=== PATIENT | male | born 1980 | race Caucasian/White ===

== ENCOUNTER 2018-09-03 02:27 | Emergency (ER) | payer BC, OTHER ==
[~2018-09-03] VITALS: Ht 175.3 cm; Wt 89.7 kg
[2018-09-03 02:35] VITALS: Ht 175.3 cm; Wt 89.7 kg
--- NOTE | 2018-09-03 02:45 | ERD ---
ER Documentation Chief Complaint Chief Complaint unable to sleep HPI The patient is a 38-year-old male, presenting to the ER because of inability to sleep for the last 2 months, complains of dyspnea/ chest pressure when he is unable to sleep, had similar symptoms previously. The chest pressure is worse with movement, he works as a hand touch up painter. He denies fever, chills, neck pain, chest pain with vomiting/radiation/exertion/diaphoresis, abdominal pain, vomiting, dysuria, diarrhea. He does not smoke nor drink, has a lot of stress in his life Past medical history: Anxiety Past surgical history: None ROS All systems reviewed and are negative except as per history of present illness. Medications Home Meds Active Scripts Zolpidem Tartrate* (Ambien*) 5 Mg Tablet, 5 MG PO HS PRN for INSOMNIA, #10 TAB Prov:BRITTNEY FARIAS MD 09/03/18 Reported Medications Ibuprofen* (Advil*) 200 Mg Capsule, 400 MG PO Q6H PRN for PAIN, CAP 09/03/18 Allergies Allergies: Coded Allergies: No Known Allergy (Unverified , 09/03/18) Physical Exam Vitals Vital Signs Date Temp Pulse Resp B/P (MAP) Pulse Ox O2 O2 Flow FiO2 Time Delivery Rate 09/03/18 72 15 122/81 98 Room Air 04:30 (95) 09/03/18 74 15 121/79 99 Room Air 03:30 (93) 09/03/18 97.8 93 18 173/103 98 02:35 (126) Physical Exam Const: No acute distress. Head: Atraumatic. Eyes: Normal Conjunctiva. ENT: Normal External Ears, Nose and Mouth. Neck: Full range of motion. No meningismus. Resp: Clear to auscultation bilaterally. Cardio: Regular rate and rhythm. Bilateral chest wall tenderness on palpation, no crepitus/erythema Abd: Soft, non distended, normal bowel sounds, non tender. Skin: No petechiae or rashes. Back: No midline or flank tenderness. Ext: No cyanosis, or edema. Neur: Awake and alert. No focal deficit Psych: Normal Mood and Affect. Result Diagram: 09/03/18 0252 09/03/18 0252 Results 24 hrs Laboratory Tests Test 09/03/18 02:52 White Blood Count 7.3 10^3/ul Red Blood Count 4.88 10^6/ul Hemoglobin 14.6 g/dl Hematocrit 41.7 % Mean Corpuscular Volume 85.5 fl Mean Corpuscular Hemoglobin 29.9 pg Mean Corpuscular Hemoglobin Concent 35.0 g/dl Red Cell Distribution Width 12.8 % Platelet Count 218 10^3/UL Mean Platelet Volume 9.7 fl Immature Granulocytes % 0.400 % Neutrophils % 61.5 % Lymphocytes % 30.6 % Monocytes % 6.7 % Eosinophils % 0.4 % Basophils % 0.4 % Nucleated Red Blood Cells % 0.0 /100WBC Immature Granulocytes # 0.030 10^3/ul Neutrophils # 4.5 10^3/ul Lymphocytes # 2.2 10^3/ul Monocytes # 0.5 10^3/ul Eosinophils # 0.0 10^3/ul Basophils # 0.0 10^3/ul Nucleated Red Blood Cells # 0.0 10^3/ul Sodium Level 142 mmol/L Potassium Level 4.0 mmol/L Chloride Level 108 mmol/L Carbon Dioxide Level 26 mmol/L Anion Gap 8 Blood Urea Nitrogen 14 mg/dl Creatinine 1.00 mg/dl Est Glomerular Filtrat Rate mL/min > 60 mL/min Glucose Level 115 mg/dl Calcium Level 9.1 mg/dl Troponin I < 0.012 ng/ml Current Medications Medications Dose Sig/[place] Start Time Status Last (Trade) Ordered Route PRN Stop Time Admin Dose Reason Admin Lorazepam 0.5 mg ONCE ONCE 09/03/18 DC 09/03/18 (Ativan) PO 03:30 03:18 09/03/18 03:31 Ketorolac 30 mg ONCE STAT 09/03/18 DC 09/03/18 Tromethamine IV 03:10 03:18 (Toradol) 09/03/18 03:11 Procedures/[place] [id number] Radiology Main Line: [phone] DIAGNOSTIC IMAGING REPORT Patient: ARLETH PALM : 1980 Age: 38 Sex: M MR #: [id number] DOS: 09/03/18 0249 Ordering MD: BRITTNEY FARIAS MD Location: E/R Room/Bed: PROCEDURE: Single view chest. CLINICAL INDICATION: Chest pain TECHNIQUE: Single view of the chest was obtained COMPARISON: None FINDINGS: There is no airspace consolidation or focal infiltrate. No pleural effusion or pneumothorax. Cardiac silhouette and mediastinal contours are unremarkable. Pulmonary vasculature appears normal. Regional bones are grossly unremarkable. IMPRESSION: No evidence of active cardiopulmonary disease. RPTAT: [facility] Physician [place] Date Time Electronically viewed and signed by Yvette Nugent Physician on 09/03/2018 04:46 xB/ CC: BRITTNEY FARIAS MD [id number] EKG: At 2:31 AM read by emergency physician Rate/Rhythm: Normal Sinus Rhythm 88 beats/min QRS, ST, T-waves: No ST elevation, no T inversion, RAD, RVH Impression: Abnormal EKG EKG: At 3:10 AM read by emergency physician Rate/Rhythm: Normal Sinus Rhythm 78 beats/min QRS, ST, T-waves: No ST elevation, no T inversion, RAD, RVH Impression: Abnormal EKG MEDICAL MAKING DECISION: The patient is a 38-year-old male, presenting to the ER because of acute insomnia, acute distress, was treated with Ativan 0.5 mg p.o. for acute anxiety and Toradol 30 mg IV his chest wall pain with good response. He is above outpatient follow-up. I do not suspect acute ACS The differential diagnoses considered include but are not limited to acute coronary syndrome, acute myocardial infarction, pericarditis, pulmonary embolism, aortic dissection, pneumonia, pleural effusion, pneumothorax, GERD, chest wall pain. Departure Diagnosis: Primary Impression: Insomnia Condition: Good Comments The patient's blood pressure was elevated (>120/80) but appears stable without evidence of hypertension emergency or urgency. The patient was counseled about the risks of hypertension and urged to pursue outpatient monitoring and therapy within a week with their primary care physician. He was discharged with Ambien 5 mg as needed at bedtime for insomnia I discussed the findings with the patient. I advised the patient to follow-up with the primary physician in about 2-3 days, sooner if needed and return if any concern. Disclaimer: Inadvertent spelling and grammatical errors are likely due to EHR/dictation software use and do not reflect on the overall quality of patient care. Also, please note that the electronic time recorded on this note does not necessarily reflect the actual time of the patient encounter. BRITTNEY FARIAS MD Sep 03, 2018 02:45
[2018-09-03] MEDS ORDERED: KETOROLAC 30 MG INJ IV STA (03:10)
[2018-09-03] MEDS ORDERED: LORAZEPAM 0.5 MG TAB PO ONE (03:30)
[2018-09-03] MEDS ORDERED: IBUP200C11 PO (03:37)
[2018-09-03] MEDS ORDERED: ZOLP5TAB PO (05:06)
[2018-09-03 05:20] VITALS: BP 120/67; PULSE 70; RESP 15
== END 2018-09-03 05:20 | disposition home or self-care (01) ==
LOC: E/R 02:27
DX: G47.00 Insomnia, unspecified (principal)
CPT/HCPCS: 36415; 71045; 80048; 84484; 85025; 93005; 96374; J1885; Z7502; Z7610